=== PATIENT | female | born 1980 | race Caucasian/White ===

== ENCOUNTER 2018-04-18 14:22 | Outpatient (CLI) | END 2018-04-18 17:25 | disposition home or self-care (01) ==

== ENCOUNTER 2018-05-11 21:08 | Inpatient (IN) | payer MEDICAID ==
[~2018-05-11] VITALS: Ht 165.1 cm; Wt 84.2 kg
[~2018-05-11 21:08] MED LIST: PREN1TAB13 PO
[2018-05-11 21:54] VITALS: Ht 165.1 cm; Wt 84.2 kg
[2018-05-11 22:00] VITALS: BP 127/58; PULSE 79; RESP 20
[2018-05-11] MEDS ORDERED: IBUPROFEN 600 MG TAB PO PRN (22:00)
[2018-05-11] MEDS ORDERED: OXYTOCIN 30 UNITS/LR 500 ML IV SCH ×2 (22:00)
[2018-05-11] MEDS ORDERED: CARBOPROST 250 MCG INJ IM PRN (22:00)
[2018-05-11] MEDS ORDERED: AMPICILLIN 2 GM/NS (PMX) 100 ML IV ONE (22:00)
[2018-05-11] MEDS ORDERED: METHYLERGONOVINE 0.2 MG INJ IM PRN (22:00)
[2018-05-11] MEDS ORDERED: OXYTOCIN 30 UNITS/LR 500 ML IV PRN (22:00)
[2018-05-11] MEDS ORDERED: BUTORPHANOL 2 MG INJ IV PRN (22:00)
[2018-05-11] MEDS ORDERED: LIDOCAINE 1% (MPF) 30 ML INJ INJ PRN (22:00)
[2018-05-11] MEDS ORDERED: MISOPROSTOL 200 MCG TAB PR PRN (22:00)
[2018-05-11] MEDS: LACTATED RINGER'S 1,000 ML IV SCH (22:29)
[2018-05-12] MEDS: AMPICILLIN 1 GM/NS (PMX) 50 ML IV SCH ×5 (02:15→19:17)
[2018-05-12] MEDS: LACTATED RINGER'S 1,000 ML IV SCH ×5 (05:45→20:05)
--- NOTE | 2018-05-12 13:24 | HP ---
Date/Time of Note Date/Time of Note DATE: 05/12/18 TIME: 13:21 OB - History Hx of Present Chief Complaint: contractions Estimated Due Date: May 17, 2018 : 2 Para: 1 Spontaneous : 0 Therapeutic : 0 Care: Limited Care Ultrasounds: Normal mid trimester US Obstetrical Complications: None, Other (late care) Medical Complications: None Past Family/Social History * Past Medical, Surgical, Family and Obstetric Histories reviewed from chart. GBS Status: Positive OB Admission Exam Vital Signs Vital Signs Vital Signs Date Temp Pulse Resp B/P (MAP) Pulse Ox O2 O2 Flow FiO2 Time Delivery Rate 05/11/18 97.6 79 20 127/58 Room Air 22:00 (81) Physical Exam HEENT: WNL Heart: Rhythm Normal Lungs: Clear, Equal Abdomen: WNL Extremities: Normal Reflexes: Normal Cervical Dilatation: 2cm Effacement: 50% Station: -1 Membranes: Intact Heart Rate: 120's Accelerations: Accelerations Present Decelerations: No Decelerations Varibility: Moderate Last 72 hours Lab Results CBC & BMP 05/11/18 22:15 OB Assessment/Plan Reason for admission: active labor Plan: Expectant Management JOSH WEBER MD May 12, 2018 13:24
[2018-05-12] MEDS ORDERED: FENTAnyl 2MCG/ML-ROPIV 0.2% 100 ML ONE (14:34)
--- NOTE | 2018-05-12 14:44 | PREAC ---
Date/Time of Note Date/Time of Note DATE: 05/12/18 TIME: 14:42 Anesthesia Eval and Record Evaluation Time Pre-Procedure Interview DATE: 05/12/18 TIME: 13:55 Age 37 Sex female NPO: 8 hrs Preoperative diagnosis iup @ 39 wks, , labor Planned procedure jovi Past Medical History Past Medical History: Includes : : (3), Para: (1), Gestational age: (39 wks.) Surgery & Anesthesia Issues No known issue Meds Anticoagulation: No Beta Duglas within 24 hr: No Reason Beta Duglas not given: Pt. not on B-Duglas Reported Medications Pnv95/Ferrous Fumarate/FA ( Vitamins Tablet) 1 Each Tablet, 1 EACH PO DAILY, TAB 04/18/18 Current Medications Lactated Ringer's 1,000 ml @ 125 mls/hr Q8H IV Last administered on 05/12/18at 13:28; Admin Dose 125 MLS/HR; Start 05/11/18 at 21:54 Ampicillin 50 ml @ 100 mls/hr Q4H IV Last administered on 05/12/18at 10:14; Admin Dose 100 MLS/HR; Start 05/12/18 at 02:00 Butorphanol Tartrate (Stadol) 2 mg Q2H PRN IV PAIN; Start 05/11/18 at 22:00 Lidocaine (Xylocaine 1% (Mpf)) 30 ml ONCE PRN INJ EPISIOTOMY; Start 05/11/18 at 22:00 Oxytocin/Lactated Ringer's 500 ml @ 500 mls/hr ONCE POST IV ; Start 05/11/18 at 22:00 Oxytocin/Lactated Ringer's 500 ml @ 125 mls/hr POST IV ; Start 05/11/18 at 22:00 Ibuprofen (Motrin) 600 mg ONCE PRN PO PAIN LEVEL 1-5; Start 05/11/18 at 22:00 Oxytocin/Lactated Ringer's 500 ml @ 0 mls/hr ONCE PRN IV VAGINAL BLEEDING; Start 05/11/18 at 22:00 Methylergonovine Maleate (Methergine) 0.2 mg ONCE PRN IM VAGINAL BLEEDING; Start 05/11/18 at 22:00 Carboprost Tromethamine (Hemabate) 250 mcg ONCE PRN IM VAGINAL BLEEDING; Start 05/11/18 at 22:00 Misoprostol (Cytotec) 1,000 mcg ONCE PRN HI VAGINAL BLEEDING; Start 05/11/18 at 22:00 Meds reviewed: Yes Allergies Coded Allergies: No Known Allergy (Unverified , 05/11/18) Allergies Reviewed: Yes Labs/Studies Labs Reviewed: Reviewed by anesthesiologist Result Diagram: 05/11/18 2215 Laboratory Tests 05/11/18 22:15 Blood Bank Test 05/11/18 22:15 Blood Type O POSITIVE Rh Immune Globulin Candidate NO test: Positive Studies: ECG (n/a), CXR (n/a) Pre-procedure Exam Last vitals Vital Signs Date Temp Pulse Resp B/P (MAP) Pulse Ox O2 O2 Flow FiO2 Time Delivery Rate 05/11/18 97.6 79 20 127/58 Room Air 22:00 (81) Airway: Adequate mouth opening, Adequate thyromental dist Mallampati: Mallampati II Teeth: Normal Lung: Normal Heart: Normal ASA Physical Status ASA physical status: 2 Emergency: E Planned Anesthetic Neuraxial: Epidural Planned Pain Management Epidural, Local by surgeon Pre-operative Attestations Prior to commencing anesthesia and surgery, the patient was re-evaluated, there was verification of: *The patient's identity *The results of appropriate recent lab work and preoperative vital signs *The above evaluation not changing prior to induction *Anesthetic plan, risk benefits, alternative and complications discussed with patient/family; questions answered; patient/family understands, accepts and wishes to proceed. Credit Card Specialist used UZMA MOORE MD May 12, 2018 14:44
--- NOTE | 2018-05-12 14:45 | PAC ---
Date/Time of Note Date/Time of Note DATE: 05/13/18 TIME: 23:30 Post-Anesthesia Notes Post-Anesthesia Note Last documented vital signs Vital Signs Date Temp Pulse Resp B/P (MAP) Pulse Ox O2 O2 Flow FiO2 Time Delivery Rate 05/11/18 97.6 79 20 127/58 Room Air 22:00 (81) Activity: WNL Respiratory function: WNL Cardiovascular function: WNL Mental status: Baseline Pain reasonably controlled: Yes Hydration appropriate: Yes Nausea/Vomiting absent: Yes UZMA MOORE MD May 12, 2018 14:45
[2018-05-12] MEDS ORDERED: ONDANSETRON 4 MG INJ IV PRN (15:00)
[2018-05-12] MEDS ORDERED: FENTAnyl 2MCG/ML-ROPIV 0.2% 100 ML BAG EPI SCH (15:00)
[2018-05-12] MEDS ORDERED: NALOXONE (0.4 MG/ML) INJ IV PRN (15:00)
[2018-05-12] MEDS ORDERED: NALBUPHINE HCL (10 MG/1 ML) INJ IV PRN (15:00)
[2018-05-12] MEDS ORDERED: DIPHENHYDRAMINE 50 MG INJ IV PRN (15:00)
[2018-05-12] MEDS ORDERED: OXYTOCIN 30 UNITS/LR 500 ML IV SCH (16:00)
[2018-05-12] MEDS ORDERED: MINERAL OIL LIGHT 10 ML VIAL TOP ONE (16:30)
--- NOTE | 2018-05-12 21:42 | LDN ---
Date/Time of Note Date/Time of Note DATE: 05/12/18 TIME: 21:39 Delivery Summary of normal male with x1 loose nuchal cord Weeks of Gestation 39w2d Meconium: none Episiotomy: Yes Indication for episiotomy expected laceration Perineal laceration: 0 Laceration repair: 00 ch gut Anesthesia type: Epidural Estimated blood loss: 90 Sponge & Needle done & correct: Yes All needle counts correct: Yes Any foreign bodies felt in the: No Delivery Information Sex Sex: male Apgars 1 Minute: 8 5 Minute: 9 Suctioning Nose & mouth suctioned at zoya: Yes Delee suction performed: No Umbilical Cord Umbilical cord with: 3 Vessels Cord presentations: nuchal cord Nuchal cord present X: 1 Cord Blood was obtained: Yes Mother & Baby Disposition Disposition Mom & Baby to Maternity; Good: Yes Mom transferred to: Other Baby to NICU: No () FRANCK FIGUEROA MD May 12, 2018 21:42
[2018-05-12 22:45] VITALS: BP 120/53; PULSE 86; RESP 18
[2018-05-12] MEDS ORDERED: BENZOCAINE 20% 56 ML SPRAY TOP PRN (23:30)
[2018-05-12] MEDS ORDERED: OXYTOCIN 30 UNITS/LR 500 ML IV PRN (23:30)
[2018-05-12] MEDS ORDERED: ZOLPIDEM 5 MG TAB PO PRN (23:30)
[2018-05-12] MEDS ORDERED: OXYCODONE/ASPIRIN (4.88/325) TAB PO PRN ×2 (23:30)
[2018-05-12] MEDS ORDERED: LANOLIN HPA 1 PKT TOP PRN (23:30)
[2018-05-12] MEDS ORDERED: CARBOPROST 250 MCG INJ IM PRN (23:30)
[2018-05-12] MEDS ORDERED: MISOPROSTOL 200 MCG TAB PR PRN (23:30)
[2018-05-12] MEDS ORDERED: WITCH HAZEL/GLYCERIN PAD PR PRN (23:30)
[2018-05-12] MEDS ORDERED: METHYLERGONOVINE 0.2 MG INJ IM PRN (23:30)
[2018-05-13] MEDS: IBUPROFEN 600 MG TAB PO SCH ×4 (00:12→17:57)
[2018-05-13] MEDS: LACTATED RINGER'S 1,000 ML IV* SCH ×2 (01:17→08:24)
[2018-05-13 03:49] VITALS: BP 112/53; PULSE 78; RESP 18
--- NOTE | 2018-05-13 06:07 | NUR ---
eoss: stable condition. fundus firm. light lochia. voided x2. npo after midnight for btl today.
[2018-05-13 08:20] VITALS: BP 101/58; PULSE 68
[2018-05-13] MEDS: SENNA/DOCUSATE NA (8.6MG/50MG) TAB PO SCH ×2 (08:55→21:31)
--- NOTE | 2018-05-13 10:13 | NUR ---
DR WEBER WAS CALLED REGARDING BTL FOR PT, MD ORDERED BTL WILL BE DONE AFTER DISCHARGE AND GIVE REGULAR DIET
--- NOTE | 2018-05-13 12:18 | DS ---
Date/Time of Note Date/Time of Note DATE: 05/13/18 TIME: 12:17 Obstetrical Discharge Record Final Diagnosis Final Diagnosis: Term delivered Vaginal Delivery Obstetrical Delivery: Spontaneous Condition on Discharge Physical Assessment Voiding: Yes Bowel Movement: Yes Breast: Soft, non-tender, Filling Fundus: Firm Calf Tenderness: No Patient Condition: Stable JOSH WEBER MD May 13, 2018 12:18
[2018-05-13 15:58] VITALS: BP 108/57; PULSE 75; RESP 18
[2018-05-13 16:03] VITALS: BP 108/57; PULSE 75; RESP 20
--- NOTE | 2018-05-13 17:02 | NUR ---
EOSS: PT V/S STABLE AND WNL, NO C/O PAIN DURING THIS SHIFT, BREAST FED BABY BONDING WELL WITH BABY
[2018-05-13 21:20] VITALS: BP 110/59; PULSE 72; RESP 18
[2018-05-14] MEDS: IBUPROFEN 600 MG TAB PO SCH ×4 (00:45→17:43)
[2018-05-14 03:30] VITALS: BP 112/61; PULSE 71; RESP 18
--- NOTE | 2018-05-14 05:21 | NUR ---
EOSS: Patient in stable condition, bonding well with baby, well, VSS, fundus is firm, showered.
[2018-05-14 08:00] VITALS: BP 102/56; PULSE 72; RESP 20
[2018-05-14] MEDS ORDERED: DIPHTH/TET/ACEL PERTUSS (ADULT) 0.5 ML VIAL IM* ONE (09:00)
[2018-05-14] MEDS: SENNA/DOCUSATE NA (8.6MG/50MG) TAB PO SCH (09:33)
[2018-05-14 16:06] VITALS: BP 114/72; PULSE 76; RESP 18
--- NOTE | 2018-05-14 18:39 | NUR ---
Discharged at this time. Staying in room waiting for 's pending discharge.
== END 2018-05-14 18:30 | disposition home or self-care (01) | DRG 807 ==
LOC: OBT 21:08 → L-D 21:08 → OBT 21:50 → L-D 21:50 → PP1 05-12 22:43
PROVIDERS: ADMIT Obstetrics & Gynecology; ATTEND Obstetrics & Gynecology
PROC: 10E0XZZ Delivery of Products of Conception, External Approach (ICD-10-PCS; principal; 2018-05-12)
PROC: 0W8NXZZ Division of Female Perineum, External Approach (ICD-10-PCS; 2018-05-12)
DX: O69.81X0 Labor and delivery complicated by cord around neck, without compression, not applicable or unspecified (principal); Z37.0 Single live birth; Z3A.39 39 weeks gestation of pregnancy
CPT/HCPCS: 62319; 85025; 85610; 85730; 86592; 86850; 86900; 86901; 87340; 99464; G0463; J0290; J2590; J3010; J7120